=== PATIENT | male | born 1960 | race American Indian/Alaskan Native ===

== ENCOUNTER 2018-01-17 06:59 | Day surgery (SDC) | payer BC ==
[2017-05-15 01:07] VITALS: BMI 33.0
[2018-01-17] MEDS ORDERED: Lactated Ringer's 500 ML IV SCH (09:15)
[2018-01-17] MEDS ORDERED: Propofol 10 mg/ml Inj (20 ML) ONE (09:31)
[2018-01-17] MEDS ORDERED: Lactated Ringer's 1,000 ML IV ONE (09:35)
[2018-01-17] MEDS ORDERED: Lidocaine Hydrochloride 5 ML INJ ONE (09:40)
[2018-01-17 10:29] VITALS: TEMP 97
[2018-01-17 11:17] VITALS: PULSE 53; O2SAT 97
[2018-01-17 12:15] VITALS: BP 133/69; RESP 17
== END 2018-01-17 11:20 | disposition home or self-care (01) ==
LOC: C.ENDO 06:59
PROVIDERS: ATTEND Internal Medicine Gastroenterology
DX: Z12.11 Encounter for screening for malignant neoplasm of colon (principal); K64.8 Other hemorrhoids; I10 Essential (primary) hypertension; M19.90 Unspecified osteoarthritis, unspecified site; F17.210 Nicotine dependence, cigarettes, uncomplicated
CPT/HCPCS: 45378; J2704; J7120

== ENCOUNTER 2018-07-27 11:22 | Emergency (ER) | payer BC ==
[2018-07-27 11:23] VITALS: BMI 33.0
[2018-07-27 11:41] VITALS: RESP 18
[2018-07-27] MEDS ORDERED: Amoxicillin-Clav 875-125 mg Tab PO STA (12:03)
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
[2018-07-27] MEDS ORDERED: Amoxicillin-Clav 875-125 mg Tab PO ONE (12:22)
[2018-07-27] MEDS ORDERED: Tdap Vaccine 0.5 ml Vial (10-64 yrs) IM ONE ×2 (12:33→12:43)
[2018-07-27 12:57] VITALS: BP 136/89; PULSE 56; TEMP 98.8
[2018-07-29 16:01] VITALS: O2SAT 99
== END 2018-07-27 13:00 | disposition home or self-care (01) ==
LOC: C.ER 11:22
DX: H66.91 Otitis media, unspecified, right ear (principal)